=== PATIENT | male | born 1945 | race Caucasian/White ===

== ENCOUNTER 2019-07-15 08:18 | Emergency (ER) | payer MEDICARE, OTHER, SELFPAY ==
[2019-07-15 08:24] VITALS: BP 147/67; PULSE 91; RESP 21; TEMP 37.3; O2SAT 96; BMI 29.7
[2019-07-15 08:27] VITALS: BP 147/87; PULSE 87; RESP 25; TEMP 37.3; O2SAT 94
--- NOTE | 2019-07-15 08:30 | DI.RAD.S_ITS ---
PROCEDURE: XR CHEST 2V INDICATIONS: cough TECHNIQUE: 2 views of the chest were acquired. COMPARISON: None. FINDINGS: Surgical changes and devices: None. Lungs and pleura: The ill-defined opacities are seen scattered in bilateral lower lung ulloa concerning for small bibasilar infiltrates. No pleural effusions or pneumothorax. Mediastinum: Mediastinal contours are normal. Heart size is normal. Bones and chest wall: No suspicious bony abnormalities. Soft tissues appear unremarkable. IMPRESSION: Findings concerning for small bibasilar patchy infiltrates/atelectasis. No pleural effusion or pneumothorax. Dictated by: Alex Martinez M.D. on 07/15/2019 8:50 Approved by: Alex Martinez M.D. on 07/15/2019 at 8:54
[2019-07-15 08:51] LABS: Add Manual Diff / Slide Review NO; Basophils Absolute Auto 200 /uL (0-100); Eosinophils Absolute Auto 200 /uL (0-450); Eosinophils Percent Auto 0.9 % (2-4); Hematocrit 37.8 % (41-53); Hemoglobin 12.9 g/dL (13.5-17.5); Lymphocytes Absolute Auto 2700 /uL (1100-4500); Lymphocytes Percent Auto 16.1 % (25-40); Mean Corpuscular HGB Conc 34.2 % (30-36); Mean Corpuscular Hemoglobin 31.2 PG (26-34); Mean Corpuscular Volume 91.3 fL (80-100); Monocytes Absolute Auto 1600 /uL (0-900); Monocytes Percent Auto 9.8 % (3-14); Neutrophils Absolute Auto 12200 /uL (1500-7000); Neutrophils Percent Auto 72.2 % (50-75); Platelet Count 286 X10^3/uL (150-400); Red Blood Cell Count 4.14 X10^6/uL (4.5-5.9); Red Cell Distribution Width 12.6 % (11.6-14.8); White Blood Cell Count 16.9 X10^3/uL (4.5-11.0)
[2019-07-15 08:54] LABS: INR 1.1 (0.9-1.3); Prothrombin Time 12.2 SECONDS (10.1-12.7)
--- NOTE | 2019-07-15 09:00 | ED.SOB ---
HPI - SOB/Dyspnea General Chief Complaint: Shortness of Breath/Dyspnea Stated Complaint: cough 2xweek,'short winded' Time Seen by Provider: 07/15/19 08:29 Source: patient Mode of arrival: Ambulatory Limitations: no limitations History of Present Illness HPI Narrative: 74-year-old male here for evaluation of 2 weeks of a cough, nonproductive cough, no fevers, dyspnea on exertion, no chest pain. Has tried some [id number]-nykveji cough and cold preparations prior to arrival. No rashes. Related Data Previous Rx's Medication Instructions Recorded azithromycin See Rx Instructions .ROUTE 07/15/19 .COMPLEX #6 tab benzonatate [Tessalon Perles] 100 mg PO BID PRN #14 cap 07/15/19 Allergies Allergy/AdvReac Type Severity Reaction Status Date / Time No Known Drug Allergies Allergy Verified 07/15/19 08:24 Review of Systems Constitutional Constitutional: Denies fever(s) Cardiovascular Cardiovascular: Denies chest pain, Denies edema, Denies leg edema, Denies palpitations, Reports dyspnea and Reports dyspnea on exertion Respiratory Respiratory: Reports cough, Reports dyspnea, Reports dyspnea on exertion and Denies wheezing Gastrointestinal Gastrointestinal: Denies abdominal pain, Denies nausea and Denies vomiting Musculoskeletal Musculoskeletal: Denies myalgias and Denies arthralgias Integumentary/Breasts Skin/Breast: Denies lesions and Denies rash Neurologic Neurologic: Denies behavioral changes Psychiatric Psychiatric: Denies behavioral changes Endocrine Endocrine: Denies palpitations Hematologic/Lymphatic Hematologic/Lymphatic: Denies easy bleeding and Denies easy bruising Allergic/Immunologic Allergic/Immunologic: Denies wheezing PFSH Surgical History No pertinent past surgical history (Acute) Social History Smoking Status: Never smoker Social History Smoking Status: Never smoker Exam Initial Vital Signs Initial Vital Signs: Vital Signs Temperature 99.2 F 07/15/19 08:24 Pulse Rate 91 H 07/15/19 08:24 Respiratory Rate 21 07/15/19 08:24 Blood Pressure 147/67 H 07/15/19 08:24 Pulse Oximetry 96 07/15/19 08:24 [facility] Head: normal to inspection and normocephalic Throat: posterior oropharynx normal Resp Effort & Inspection: normal respiratory effort Auscultation: other (Coarse breath sounds bilateral) Cardio Rate: regular rate Rhythm: regular rhythm Pulses: radial pulses present GI Inspection: non-distended Palpation: soft and No tender Skin Lesions: no lesions Rashes: no rashes Neuro General: alert, awake and oriented x3 Cognition: normal cognition Speech: speech normal Gait: normal gait Extrem General: normal to inspection and capillary refill normal Psych Appearance: grossly normal and well kempt Course Orders Ordered: ED Orders 07/15/19 08:24 EKG-12 Lead Stat 07/15/19 08:30 XR chest 2V Stat 07/15/19 08:40 B Type Natriuretic Peptide Stat Basic Metabolic Panel Stat Complete Blood Count AUTO DIFF Stat Partial Thromboplastin Time Stat Prothrombin Time INR Stat Troponin I Stat Vital Signs Vital signs: Vital Signs - 8 hr 07/15/19 08:24 07/15/19 08:27 Temperature 99.2 F 99.2 F Pulse Rate 91 H 87 Respiratory Rate 21 25 H Blood Pressure 147/67 H Blood Pressure [Right Arm] 147/87 H Pulse Oximetry 96 94 MDM - SOB/Dyspnea Lab Data Attestation: I reviewed the patient's lab results. Result diagrams: 07/15/19 08:40 07/15/19 08:40 Labs: Lab Results 07/15/19 07/15/19 07/15/19 Range/Units 08:40 08:40 08:40 WBC 16.9 H (4.5-11.0) X10^3/uL RBC 4.14 L (4.5-5.9) X10^6/uL Hgb 12.9 L (13.5-17.5) g/dL Hct 37.8 L (41-53) % MCV 91.3 (80-100) fL MCH 31.2 (26-34) PG MCHC 34.2 (30-36) % RDW 12.6 (11.6-14.8) % Plt Count 286 (150-400) X10^3/uL Neut % (Auto) 72.2 (50-75) % Lymph % (Auto) 16.1 L (25-40) % Pitkin % (Auto) 9.8 (3-14) % Eos % (Auto) 0.9 L (2-4) % Baso % (Auto) 1.0 (0-2) % Neut # (Auto) 62752 H (2871-8567) /uL Lymph # (Auto) 2700 (3811-5491) /uL Pitkin # (Auto) 1600 H (0-900) /uL Eos # (Auto) 200 (0-450) /uL Baso # (Auto) 200 H (0-100) /uL PT (10.1-12.7) SECONDS INR (0.9-1.3) APTT 31 (26.4-36.2) SECONDS Sodium 134 L (137-145) mmol/L Potassium 4.6 (3.4-5.1) mmol/L Chloride 98 (98-107) mmol/L Carbon Dioxide 24 (22-32) mmol/L BUN 33 H (9-20) mg/dL Creatinine 1.20 (0.66-1.25) mg/dL Estimated GFR 58.9 L (>60) mL/min BUN/Creatinine Ratio 27.5 H (6-22) Glucose 365 H (80-110) mg/dL Calcium 9.0 (8.4-10.2) mg/dL Troponin I (0.01-0.034) ng/mL B-Natriuretic Peptide < 100 (<100) 07/15/19 07/15/19 Range/Units 08:40 08:40 WBC (4.5-11.0) X10^3/uL RBC (4.5-5.9) X10^6/uL Hgb (13.5-17.5) g/dL Hct (41-53) % MCV (80-100) fL MCH (26-34) PG MCHC (30-36) % RDW (11.6-14.8) % Plt Count (150-400) X10^3/uL Neut % (Auto) (50-75) % Lymph % (Auto) (25-40) % Pitkin % (Auto) (3-14) % Eos % (Auto) (2-4) % Baso % (Auto) (0-2) % Neut # (Auto) (0951-1614) /uL Lymph # (Auto) (6539-5093) /uL Pitkin # (Auto) (0-900) /uL Eos # (Auto) (0-450) /uL Baso # (Auto) (0-100) /uL PT 12.2 (10.1-12.7) SECONDS INR 1.1 (0.9-1.3) APTT (26.4-36.2) SECONDS Sodium (137-145) mmol/L Potassium (3.4-5.1) mmol/L Chloride (98-107) mmol/L Carbon Dioxide (22-32) mmol/L BUN (9-20) mg/dL Creatinine (0.66-1.25) mg/dL Estimated GFR (>60) mL/min BUN/Creatinine Ratio (6-22) Glucose (80-110) mg/dL Calcium (8.4-10.2) mg/dL Troponin I < 0.012 (0.01-0.034) ng/mL B-Natriuretic Peptide (<100) Imaging Data Chest x-ray: Radiologist's impression: [address] [address] XRay Report Signed Patient: Art Hopkins R#: [id number] : 3Acct:[id number] Age/Sex: 74 / MDate of Service: 07/15/19 Loc: ED Accession Number: [id number] Procedure: XR chest 2V Ordering Provider: Zoltan Carson D.O. PROCEDURE: XR CHEST 2V INDICATIONS: cough TECHNIQUE: 2 views of the chest were acquired. COMPARISON: None. FINDINGS: Surgical changes and devices: None. Lungs and pleura: The ill-defined opacities are seen scattered in bilateral lower lung ulloa concerning for small bibasilar infiltrates. No pleural effusions or pneumothorax. Mediastinum: Mediastinal contours are normal. Heart size is normal. Bones and chest wall: No suspicious bony abnormalities. Soft tissues appear unremarkable. IMPRESSION: Findings concerning for small bibasilar patchy infiltrates/atelectasis. No pleural effusion or pneumothorax. Dictated by: Alex Martinez M.D. on 07/15/2019 8:50 Approved by: Alex Martinez M.D. on 07/15/2019 at 8:54 ECG Data Attestation: I personally reviewed and interpreted this ECG as follows: Prior ECG tracings: not available for review Interpretation: Sinus rhythm Normal axis Normal QRS Normal QTC No ST T wave changes Ventricular rate 81 MDM Narrative Medical decision making narrative: White count of 16, EKG and troponin unremarkable after 2 weeks of symptoms, chest x-ray concerning for pneumonia. Will treat with antibiotics. Patient does not meet criteria for healthcare associated pneumonia. His tolerating oral intake. We discussed return precautions and follow-up instructions. He expressed understanding and agreement Discharge Plan Departure Patient Disposition: Home Clinical Impression: Pneumonia Qualifiers: Pneumonia type: due to unspecified organism Laterality: unspecified laterality Lung location: unspecified part of lung Qualified Code(s): J18.9 - Pneumonia, unspecified organism Instructions: Pneumonia-Adult Activity Restrictions/Additional Instructions: Take the antibiotics as directed. You can use the [id number] Robitussin if you would like like we discussed. Contact your primary provider when you return home. Return to the emergency department for any new or worsening symptoms Prescriptions: New azithromycin 250 mg tablet See Rx Instructions .ROUTE .COMPLEX Qty: 6 RF: 0 benzonatate [Tessalon Perles] 100 mg capsule 100 mg PO BID PRN (Reason: cough) Qty: 14 RF: 0
[2019-07-15 09:01] LABS: PTT Partial Thromboplastin Tim 31 SECONDS (26.4-36.2)
[2019-07-15 09:02] LABS: BUN Creatinine Ratio 27.5 (6-22); Blood Urea Nitrogen 33 mg/dL (9-20); Carbon Dioxide 24 mmol/L (22-32); Chloride 98 mmol/L (98-107); Estimated Glomerular Filt Rate 58.9 mL/min (>60); Glucose 365 mg/dL (80-110); HEMOLYSIS < 15 (0-50); Potassium 4.6 mmol/L (3.4-5.1); Sodium 134 mmol/L (137-145)
[2019-07-15 09:11] LABS: B Type Natriuretic Peptide < 100 (<100)
[2019-07-15 09:13] LABS: Troponin I < 0.012 ng/mL (0.01-0.034)
[2019-07-15 09:44] VITALS: BP 131/47; PULSE 75; RESP 24; O2SAT 96
== END 2019-07-15 09:44 | disposition home or self-care (01) ==
PROVIDERS: Emergency Provider Emergency Medicine
DX: J18.9 Pneumonia, unspecified organism (principal); R07.9 Chest pain, unspecified
CPT/HCPCS: 36415; 71046; 80048; 83880; 84484; 85025; 85610; 85730; 93005; 93010; 99282; 99285